=== PATIENT | female | born 1995 | race Caucasian/White ===

== ENCOUNTER 2018-03-17 21:59 | Inpatient (IN) | payer OTHER ==
[~2018-03-17] VITALS: Ht 149.9 cm; Wt 69.8 kg
[2018-03-17] MEDS ORDERED: ONDANSETRON 2MG/ML, 2ML ONE (22:25)
[2018-03-17] MEDS ORDERED: METOCLOPRAMIDE 5 MG/ML, 2ML ONE (22:25)
[2018-03-17] MEDS ORDERED: DIPHENHYDRAMINE 50 MG/ML, 1ML ONE (22:25)
[2018-03-17] MEDS ORDERED: MORPHINE SULFATE 4 MG/ML, 1ML ONE (22:26)
[2018-03-17] MEDS ORDERED: DIPHENHYDRAMINE 50 MG/ML, 1ML IVPush ONE (22:30)
[2018-03-17] MEDS ORDERED: METOCLOPRAMIDE 5 MG/ML, 2ML IVPush ONE (22:30)
[2018-03-17] MEDS ORDERED: MORPHINE SULFATE 4 MG/ML, 1ML IVPush PRN (22:30)
[2018-03-17] MEDS ORDERED: ONDANSETRON 2MG/ML, 2ML IVPush ONE (22:30)
[2018-03-17 22:38] LABS: BASOPHILS # (AUTO) 0.02 x10^3/uL (0-0.1); BASOPHILS % (AUTO) 0 % (0-1); EOSINOPHILS # (AUTO) 0.03 x10^3/uL (0-0.4); EOSINOPHILS % (AUTO) 0 % (1-7); LYMPHOCYTES # (AUTO) 1.54 x10^3/uL (1-3.4); LYMPHOCYTES % (AUTO) 9 % (22-44); MD NO; MEAN CORPUSCULAR HEMOGLOBIN 30.5 pg (27.0-34.8); MEAN CORPUSCULAR HGB CONC 33.8 g/dL (32.4-35.8); MEAN CORPUSCULAR VOLUME 90.1 fL (80-100); MEAN PLATELET VOLUME 8.3 fL (7.4-10.4); MONOCYTES # (AUTO) 0.48 x10^3/uL (0.2-0.8); MONOCYTES % (AUTO) 3 % (2-9); NEUTROPHILS # (AUTO) 14.73 x10^3/uL (1.8-6.8); NEUTROPHILS % (AUTO) 88 % (42-75); PLATELET COUNT 382 x10^3/uL (130-400); RED BLOOD COUNT 5.61 x10^6/uL (3.82-5.3); RED CELL DISTRIBUTION WIDTH 12.9 % (9.6-15.2)
--- NOTE | 2018-03-17 22:41 | NUR ---
IV PLACED MEMORIAL ADVISER NO LONGER VIABLE. THIS RN D/C AND NEW IV INITIATED. MEDS GIVEN PER APR.
[2018-03-17 22:49] LABS: ALANINE AMINOTRANSFERASE 18 U/L (12-78); ALBUMIN 4.1 g/dL (3.4-5.0); ANION GAP 6 mmol/L (5-15); CALCIUM 9.5 mg/dL (8.5-10.1); CHLORIDE 108 mmol/L (98-107); CREATININE 0.95 mg/dL (0.55-1.02)
[2018-03-17 22:54] LABS: ALKALINE PHOSPHATASE 77 U/L (45-117); BILIRUBIN,TOTAL 0.3 mg/dL (0.2-1.0); TOTAL PROTEIN 8.4 g/dL (6.4-8.2)
--- NOTE | 2018-03-17 22:54 | NUR ---
PT SLEEPING COMFORTABLY ON GURNEY AFTER MEDICATION. WARM BLANKETS APPLIED FOR COMFORT. NADN. RR EVEN AND UNLABORED. AWAITING LAB RESULTS FOR CT. VSS. FAMILY AT BEDSIDE.
[2018-03-17 23:09] LABS: CULTURE INDICATED? YES; MICROSCOPIC INDICATED
[2018-03-17] MEDS ORDERED: OMNIPAQUE 350 MG/ML, 100ML BOTTLE ONE (23:35)
--- NOTE | 2018-03-17 23:59 | NUR ---
PT SLEEPING COMFORTABLY ON GURNEY. RR EVEN AND UNLABORED. NADN. VSS. CALL LIGHT WITHIN REACH.
[2018-03-18] MEDS ORDERED: SODIUM CHLORIDE 0.9% 1,000 ML IV SCH
[2018-03-18] MEDS ORDERED: MIDAZOLAM 1 MG/ML, 2ML ONE (00:11)
[2018-03-18] MEDS ORDERED: MIDAZOLAM 1 MG/ML, 2ML IVPush ONE (00:30)
--- NOTE | 2018-03-18 00:55 | NUR ---
NG PLACED AT THIS TIME. CHECKED W/ AUSCULTATION OF AIR BOLUS AND NG CONTENT ASPIRATION. SET TO INTERMITTENT SUCTIONING AND APPROXIMATELY 1100 NORMAL APPEARING GASTRIC CONTENTS OUT.
--- NOTE | 2018-03-18 01:10 | NUR ---
PT MOTHER TOLD THIS RN PT "GAGGED REALLY HARD AND THE TUBE CAME OUT." PT NOT WANTING THE TUBE BACK IN. HOSPITALIST NOTIFIED. HOSPITALIST STATES HOLD OFF ON THE TUBE AND ALLOW THE PT TO CALM DOWN, AND "MAYBE PLACE IT LATER ON IF SHE TOLERATES". FLOOR NURSE NOTIFIED.
[2018-03-18 01:30] VITALS: BP 112/69
[2018-03-18] MEDS ORDERED: ACETAMINOPHEN 325 MG TABLET PO PRN (01:30)
[2018-03-18] MEDS ORDERED: PROMETHAZINE 25 MG/ML, 1ML IM PRN (01:30)
[2018-03-18] MEDS ORDERED: ONDANSETRON ODT 4 MG PO PRN (01:30)
[2018-03-18] MEDS ORDERED: ONDANSETRON 2MG/ML, 2ML IVPush PRN (01:30)
[2018-03-18 01:44] LABS: HEMOGLOBIN A1C 5.3 % (4.2-6.3)
[2018-03-18 01:45] LABS: FREE T4 (FREE THYROXINE) 1.2 ng/dL (0.76-1.46); THYROID STIMULATING HORMONE 1.54 mIU/L (0.358-3.740)
[2018-03-18] MEDS: morphine SULFATE 10 MG/ML, 1ML IVPush PRN ×4 (02:12→10:15)
[2018-03-18] MEDS: D5%-0.9% NACL+KCL 20MEQ 1,000 ML IV SCH ×3 (02:12→20:52)
[2018-03-18 05:21] LABS: MICROSCOPIC NOT IND
[2018-03-18 05:24] LABS: CULTURE INDICATED? NO
[2018-03-18 06:41] LABS: CLOSTRIDIUM DIFFICILE ANTIGEN NEGATIVE; CLOSTRIDIUM DIFFICILE TOXIN NEGATIVE (Negative)
[2018-03-18 07:28] VITALS: BP 113/69
[2018-03-18] MEDS: OXYcodone IR 5MG TABLET PO PRN ×3 (11:10→20:52)
[2018-03-18 12:11] LABS: MEAN CORPUSCULAR HEMOGLOBIN 29.9 pg (27.0-34.8); MEAN CORPUSCULAR HGB CONC 33.4 g/dL (32.4-35.8); MEAN CORPUSCULAR VOLUME 89.7 fL (80-100); MEAN PLATELET VOLUME 8.2 fL (7.4-10.4); PLATELET COUNT 243 x10^3/uL (130-400); RED BLOOD COUNT 4.25 x10^6/uL (3.82-5.3); RED CELL DISTRIBUTION WIDTH 12.8 % (9.6-15.2)
[2018-03-18 12:13] LABS: BASOPHILS # (AUTO) 0.03 x10^3/uL (0-0.1); BASOPHILS % (AUTO) 0 % (0-1); EOSINOPHILS # (AUTO) 0.04 x10^3/uL (0-0.4); EOSINOPHILS % (AUTO) 1 % (1-7); HEMOGRAM NOTE RECHECKED; LYMPHOCYTES % (AUTO) 21 % (22-44); MD NO; MONOCYTES # (AUTO) 0.55 x10^3/uL (0.2-0.8); MONOCYTES % (AUTO) 7 % (2-9); NEUTROPHILS # (AUTO) 5.64 x10^3/uL (1.8-6.8); NEUTROPHILS % (AUTO) 71 % (42-75)
[2018-03-18 13:47] VITALS: BP 82/52
[2018-03-18] MEDS ORDERED: DIPHENHYDRAMINE 25 MG CAPSULE PO PRN (21:00)
[2018-03-18 21:23] VITALS: BP 107/74
[2018-03-19] VITALS (7 sets, daily range): BP systolic 72–113; BP diastolic 47–74
[2018-03-19 06:09] LABS: BASOPHILS # (AUTO) 0.02 x10^3/uL (0-0.1); BASOPHILS % (AUTO) 0 % (0-1); EOSINOPHILS # (AUTO) 0.08 x10^3/uL (0-0.4); EOSINOPHILS % (AUTO) 1 % (1-7); LYMPHOCYTES # (AUTO) 2.93 x10^3/uL (1-3.4); LYMPHOCYTES % (AUTO) 49 % (22-44); MD NO; MEAN CORPUSCULAR HEMOGLOBIN 31.2 pg (27.0-34.8); MEAN CORPUSCULAR HGB CONC 34.5 g/dL (32.4-35.8); MEAN CORPUSCULAR VOLUME 90.5 fL (80-100); MEAN PLATELET VOLUME 8.3 fL (7.4-10.4); MONOCYTES # (AUTO) 0.66 x10^3/uL (0.2-0.8); MONOCYTES % (AUTO) 11 % (2-9); NEUTROPHILS # (AUTO) 2.35 x10^3/uL (1.8-6.8); NEUTROPHILS % (AUTO) 39 % (42-75); PLATELET COUNT 222 x10^3/uL (130-400); RED BLOOD COUNT 3.93 x10^6/uL (3.82-5.3); RED CELL DISTRIBUTION WIDTH 12.9 % (9.6-15.2)
[2018-03-19 06:14] LABS: ALBUMIN 2.6 g/dL (3.4-5.0); ANION GAP 6 mmol/L (5-15); CHLORIDE 113 mmol/L (98-107)
[2018-03-19] MEDS: D5%-0.9% NACL+KCL 20MEQ 1,000 ML IV SCH ×2 (06:14→13:47)
[2018-03-19 06:18] LABS: ALANINE AMINOTRANSFERASE 11 U/L (12-78); ALKALINE PHOSPHATASE 42 U/L (45-117); BILIRUBIN,TOTAL 0.2 mg/dL (0.2-1.0); CHOL/HDL RATIO 3.4; CHOLESTEROL, TOTAL 98 mg/dL (140-239); CREATININE 0.63 mg/dL (0.55-1.02); HDL CHOL % 30 % (28-40); HDL CHOLESTEROL (DIRECT) 29 mg/dL (40-60); LDL CHOLESTEROL,CALCULATED 49 mg/dL (54-169); LDL/HDL RATIO 1.7 (0.5-3.0); TOTAL PROTEIN 5.6 g/dL (6.4-8.2); TRIGLYCERIDES 102 mg/dL (50-200); VLDL CHOLESTEROL 20 mg/dL (0-25)
[2018-03-19] MEDS ORDERED: SODIUM CHLORIDE 0.9%, 500ML IVBOLUS ONE (06:30)
[2018-03-19] MEDS: POLYETHYLENE GLYCOL 17 GM PACKET PO SCH (17:42)
[2018-03-20 00:37] VITALS: BP 110/68
[2018-03-20 08:49] VITALS: BP 98/62
[2018-03-20] MEDS: POLYETHYLENE GLYCOL 17 GM PACKET PO SCH (09:40)
[2018-03-20 13:08] VITALS: BP 105/69
== END 2018-03-20 14:26 | disposition home or self-care (01) | DRG 389 ==
LOC: ED 23:59 → EDIP 03-18 00:22 → 4NOR 03-18 01:21 → DCLOUNGE 03-20 14:14
PROVIDERS: ADMIT Internal Medicine; ATTEND Internal Medicine
DX: K56.52 Intestinal adhesions [bands] with complete obstruction (principal); Q43.3 Congenital malformations of intestinal fixation; D72.829 Elevated white blood cell count, unspecified; E86.0 Dehydration; F41.9 Anxiety disorder, unspecified; H54.7 Unspecified visual loss; Q11.2 Microphthalmos; Q13.0 Coloboma of iris; Z87.891 Personal history of nicotine dependence; Z88.1 Allergy status to other antibiotic agents; Z88.0 Allergy status to penicillin; Z88.2 Allergy status to sulfonamides; F12.10 Cannabis abuse, uncomplicated
CPT/HCPCS: 36415; 74177; 80053; 80061; 81001; 81003; 83036; 83690; 83735; 84439; 84443; 84703; 85025; 87086; 87324; 96374; 96375; G0378; J2250; J2405; Q9967; J1200; J2270; J2765; J3480; J7040; Q0163

== ENCOUNTER 2019-07-23 08:00 | Outpatient (CLI) | payer OTHER ==
[2019-07-23] MEDS ORDERED: ALBU8.5H8 INH (13:26)
[2019-07-23] MEDS ORDERED: [UNRECOGNIZED DRUG - OTHER] PO (13:26)
[2019-07-23] MEDS ORDERED: DESO1TAB89 PO (13:26)
[2019-07-23 13:39] LABS: BASOPHILS # (AUTO) 0.04 x10^3/uL (0-0.1); BASOPHILS % (AUTO) 0 % (0-1); EOSINOPHILS # (AUTO) 0.01 x10^3/uL (0-0.4); EOSINOPHILS % (AUTO) 0 % (1-7); LYMPHOCYTES # (AUTO) 3.44 x10^3/uL (1-3.4); LYMPHOCYTES % (AUTO) 33 % (22-44); MD NO; MEAN CORPUSCULAR HEMOGLOBIN 30.1 pg (27.0-34.8); MEAN CORPUSCULAR HGB CONC 33.6 g/dL (32.4-35.8); MEAN CORPUSCULAR VOLUME 89.8 fL (80-100); MEAN PLATELET VOLUME 7.8 fL (7.4-10.4); MONOCYTES # (AUTO) 0.59 x10^3/uL (0.2-0.8); MONOCYTES % (AUTO) 6 % (2-9); NEUTROPHILS # (AUTO) 6.52 x10^3/uL (1.8-6.8); NEUTROPHILS % (AUTO) 62 % (42-75); PLATELET COUNT 347 x10^3/uL (130-400); RED BLOOD COUNT 4.82 x10^6/uL (3.82-5.3); RED CELL DISTRIBUTION WIDTH 12.6 % (9.6-15.2)
== END 2019-07-23 23:59 | disposition home or self-care (01) ==
LOC: STAR 08:00
PROVIDERS: ATTEND Obstetrics & Gynecology
DX: Z01.818 Encounter for other preprocedural examination (principal); Z88.0 Allergy status to penicillin; Z88.1 Allergy status to other antibiotic agents
CPT/HCPCS: 36415; 84703; 85025

== ENCOUNTER 2019-08-06 06:32 | Day surgery (SDC) | payer OTHER ==
[~2019-08-06] VITALS: Ht 149.9 cm; Wt 67.0 kg
[~2019-08-06 06:32] MED LIST: ALBU8.5H8 INH; DESO1TAB89 PO; [UNRECOGNIZED DRUG - OTHER] PO
[2019-08-06] MEDS ORDERED: LACTATED RINGERS 1,000 ML IV SCH (06:44)
[2019-08-06 06:56] VITALS: BP 126/75
[2019-08-06] MEDS ORDERED: CHLORHEXIDINE 15 ML UDC MM ONE (07:00)
[2019-08-06] MEDS ORDERED: LIDOCAINE-MPF 1%, 2ML INFIL ONE (07:00)
[2019-08-06] MEDS ORDERED: BUPIVACAINE/PF 0.25% ONE (07:12)
[2019-08-06 07:13] LABS: HCG UR SG 1.016 (1.003-1.030)
[2019-08-06] MEDS ORDERED: ROCURONIUM 10MG/ML,5ML ONE (07:58)
[2019-08-06] MEDS ORDERED: DEXAMETHASONE 4 MG/ML, 1ML ONE (07:58)
[2019-08-06] MEDS ORDERED: PROPOFOL 10 MG/ML, 20ML ONE (07:58)
[2019-08-06] MEDS ORDERED: GLYCOPYRROLATE 0.2MG/1ML, 5ML ONE (07:58)
[2019-08-06] MEDS ORDERED: MIDAZOLAM 1 MG/ML, 2ML ONE (07:58)
[2019-08-06] MEDS ORDERED: LIDOCAINE-MPF 2% ,5ML ONE (07:58)
[2019-08-06] MEDS ORDERED: FENTANYL PF 250 MCG/5ML ONE (07:59)
[2019-08-06] MEDS ORDERED: BUPIVACAINE/PF-EPI 0.25% 1:200K ONE (08:32)
[2019-08-06] MEDS ORDERED: DIPHENHYDRAMINE 50 MG/ML, 1ML IVPush PRN (09:00)
[2019-08-06] MEDS ORDERED: ONDANSETRON 2MG/ML, 2ML IVPush PRN (09:00)
[2019-08-06] MEDS ORDERED: LABETALOL 5MG/ML, 20ML IV PRN (09:00)
[2019-08-06] MEDS ORDERED: METOCLOPRAMIDE 5 MG/ML, 2ML IVPush PRN (09:00)
[2019-08-06] MEDS ORDERED: MIDAZOLAM 1 MG/ML, 2ML IV PRN (09:00)
[2019-08-06] MEDS ORDERED: LORazepam 2 MG/ML, 1ML IVPush PRN (09:00)
[2019-08-06] MEDS ORDERED: EPHEDRINE 50 MG/ML, 1ML IM PRN (09:00)
[2019-08-06] MEDS ORDERED: EPHEDRINE 50 MG/ML, 1ML IVPush PRN (09:00)
[2019-08-06] MEDS ORDERED: DIAZEPAM 5 MG/ML, 2ML IVPush PRN (09:00)
[2019-08-06] MEDS ORDERED: hydrALAzine 20 MG/ML, 1ML IV PRN (09:00)
[2019-08-06] MEDS ORDERED: OXYcodone 5 MG/5 ML ORAL.SOL UDC PO PRN (09:00)
[2019-08-06] MEDS ORDERED: HALOPERIDOL 5 MG/ML IV PRN (09:00)
[2019-08-06] MEDS ORDERED: MEPERIDINE/PF 25MG/0.5ML IVPush PRN (09:00)
[2019-08-06] MEDS ORDERED: ALBUTEROL/IPRATROPIUM 2.5MG/0.5MG, 3 ML NPPB PRN (09:00)
[2019-08-06] MEDS ORDERED: KETOROLAC 30 MG/1 ML IVPush PRN (09:00)
[2019-08-06] MEDS ORDERED: ACETAMINOPHEN 325 MG TABLET PO PRN (09:00)
[2019-08-06] MEDS ORDERED: HYDROcodone/APAP 7.5-325MG/15ML UDC PO PRN (09:00)
[2019-08-06] MEDS ORDERED: HYDROmorphone 1 MG/ML, 1ML INJ IVPush PRN (09:00)
[2019-08-06] MEDS ORDERED: BUPIVACAINE/PF-EPI 0.25% 1:200K INFIL ONE (09:19)
[2019-08-06] MEDS ORDERED: SILVER NITRATE STICK TP ONE ×2 (09:52→09:57)
[2019-08-06] MEDS ORDERED: ACETAMINOPHEN 650 MG/20.3 ML UDC ONE (10:21)
[2019-08-06] MEDS ORDERED: FENTANYL PF 100 MCG/2ML ONE (10:21)
[2019-08-06] MEDS ORDERED: OXYcodone 5 MG/5 ML ORAL.SOL UDC ONE (10:22)
[2019-08-06] MEDS: FENTANYL PF 100 MCG/2ML IV PRN ×3 (10:29→10:42)
== END 2019-08-06 14:30 | disposition home or self-care (01) ==
LOC: OUT 06:32
PROVIDERS: ATTEND Obstetrics & Gynecology
DX: Z30.2 Encounter for sterilization (principal); Z11.59 Encounter for screening for other viral diseases; N80.3 Endometriosis of pelvic peritoneum; N73.6 Female pelvic peritoneal adhesions (postinfective); J45.909 Unspecified asthma, uncomplicated; H54.8 Legal blindness, as defined in USA; Q11.2 Microphthalmos; Z79.899 Other long term (current) drug therapy; Z88.0 Allergy status to penicillin; Z88.2 Allergy status to sulfonamides; Z88.8 Allergy status to other drugs, medicaments and biological substances; Z90.49 Acquired absence of other specified parts of digestive tract; Z98.890 Other specified postprocedural states
CPT/HCPCS: 58662; 58670; 81025; 88302; J1100; J2250; J2704; J3010; J7120; U0001; J3490